=== PATIENT | male | born 1980 | race Asian ===

== ENCOUNTER 2024-09-12 07:38 | Emergency (ER) | payer MEDICAID ==
[~2024-09-12] VITALS: Ht 172.7 cm; Wt 86.0 kg
[2024-09-12] MEDS ORDERED: IBUP-1506 PO (07:46)
[2024-09-12] MEDS ORDERED: [UNRECOGNIZED DRUG - OTHER] PO (07:46)
[2024-09-12 07:51] VITALS: TEMP 98.6
[2024-09-12 08:03] LABS: COVID AG,FIA SOURCE NASAL SWAB
[2024-09-12 08:33] LABS: SARS-COV2 (COVID) ANTIGEN,FIA Negative (Negative)
[2024-09-12 08:34] LABS: INFLUENZA TYPE B NEGATIVE FOR TYPE B (NEGATIVE)
[2024-09-12] MEDS: ACETAMINOPHEN 500 MG TABLET PO ONE (08:42)
[2024-09-12] MEDS: IBUPROFEN 800 MG TABLET PO ONE (08:42)
[2024-09-12] MEDS: GuaiFENesin/D-METHORPHAN [SUGAR-FREE] 200-20MG/10 ML SYRUP UDCUP PO ONE (08:42)
[2024-09-12 09:45] LABS: INFLUENZA TYPE A POSITIVE FOR TYPE A (NEGATIVE)
[2024-09-12] MEDS ORDERED: IBUP-1493 PO (09:51)
[2024-09-12] MEDS ORDERED: ACET-66 PO (09:51)
[2024-09-12] MEDS ORDERED: GUAIFDM PO (09:51)
[2024-09-12 10:10] VITALS: BP 118/71; PULSE 94; RESP 20; O2SAT 99
== END 2024-09-12 10:11 | disposition home or self-care (01) ==
LOC: EMS 07:48
DX: J10.1 Influenza due to other identified influenza virus with other respiratory manifestations (principal); R00.2 Palpitations; Z88.0 Allergy status to penicillin; Z20.822 Contact with and (suspected) exposure to COVID-19
CPT/HCPCS: 87804; 93005; 99284; Z7502; Z7610